=== PATIENT | female | born 1990 | race Caucasian/White ===

== ENCOUNTER 2016-11-05 02:26 | Emergency (ER) | payer SELFPAY ==
[~2016-11-05] VITALS: Ht 162.6 cm; Wt 68.0 kg
[2016-11-05 03:40] LABS: HCG SCREEN NEGATIVE
[2016-11-05] MEDS ORDERED: ONDANSETRON 4MG ODT PO ONE (08:30)
[2016-11-05] MEDS ORDERED: HYDROCODONE/APAP 7.5/325MG 1 TAB TABLET PO ONE (08:30)
[2016-11-05] MEDS ORDERED: BACITRACIN ZINC 15GM TUBE TOP ONE (09:00)
[2016-11-05 13:23] VITALS: BP 132/73
== END 2016-11-05 13:39 | disposition home or self-care (01) ==
LOC: EDBD 02:26 → ER 04:22
DX: S02.2XXA Fracture of nasal bones, initial encounter for closed fracture (principal); S10.91XA Abrasion of unspecified part of neck, initial encounter; F10.129 Alcohol abuse with intoxication, unspecified; Y90.6 Blood alcohol level of 120-199 mg/100 ml; Y04.0XXA Assault by unarmed brawl or fight, initial encounter; Y93.9 Activity, unspecified; Y92.59 Other trade areas as the place of occurrence of the external cause
CPT/HCPCS: 36415; 70486; 72125; 84703; 99285; G0482; Q0162; Z7610